=== PATIENT | male | born 1985 | race Caucasian/White ===

== ENCOUNTER 2019-04-23 01:48 | Emergency (ER) | payer OTHER ==
[~2019-04-23] VITALS: Ht 170.2 cm; Wt 79.4 kg
[2019-04-23] MEDS ORDERED: fentaNYL PF VIAL 100 MCG/2 ML VIAL IV ONE (02:15)
[2019-04-23] MEDS ORDERED: IV NORMAL SALINE 1000ML BAG 1,000 ML IV ONE (02:15)
[2019-04-23 02:28] LABS: BASO # 0.1 x10^3/uL (0.0-0.2); BASO % 0 % (0-3); EOS # 0.1 x10^3/uL (0.0-0.7); EOS % 1 % (0-3); HEMATOCRIT 41.3 % (39.0-53.0); HEMOGLOBIN 14.1 g/dL (13.0-17.5); LYMPH # 2.3 x10^3/uL (1.0-4.8); LYMPH % 14 % (24-48); MEAN CORPUSCULAR HEMOGLOBIN 29 pg (25-35); MEAN CORPUSCULAR HGB CONC 34 g/dL (31-37); MEAN CORPUSCULAR VOLUME 86 fL (79-100); MONO # 0.9 x10^3/uL (0.0-1.1); MONO % 6 % (0-9); NEUT # 12.8 x10^3/uL (1.8-7.7); NEUT % 79 % (31-73); PLATELET COUNT 319 x10^3/uL (140-400); RED BLOOD COUNT 4.83 x10^6/uL (4.30-5.70); RED CELL DISTRIBUTION WIDTH 13.1 % (11.5-14.5); WHITE BLOOD COUNT 16.2 x10^3/uL (4.0-11.0)
[2019-04-23 02:34] LABS: CALCIUM 9.4 mg/dL (8.5-10.1); CREATININE 0.9 mg/dL (0.7-1.3); GFR 97.8; POTASSIUM 3.9 mmol/L (3.5-5.1)
[2019-04-23 02:35] LABS: CREATININE ISTAT 0.9 mg/dL (0.5-1.4); HEMOGLOBIN ISTAT 13.9 g/dL (14-18); ION CA ISTAT 1.21 mmol/L (1.13-1.32); POTASSIUM ISTAT 3.8 mmol/L (3.5-5.0)
[2019-04-23 02:38] LABS: PROTHROMBIN TIME PATIENT 13.5 SEC (11.7-14.0)
[2019-04-23 02:40] LABS: ALBUMIN 4.4 g/dL (3.4-5.0); ALBUMIN/GLOBULIN RATIO 1.3 (1.0-1.7); TOTAL BILIRUBIN 0.5 mg/dL (0.2-1.0); TOTAL PROTEIN 7.8 g/dL (6.4-8.2)
[2019-04-23] MEDS ORDERED: CONTRAST GIVEN. MC PRN (03:15)
[2019-04-23] MEDS ORDERED: MORPHINE SULFATE 4 MG/ML VIAL. IV ONE (03:15)
[2019-04-23] MEDS ORDERED: IOHEXOL 300 MG/ML 100ML VIAL. IV ONE (03:15)
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
[2019-04-23 03:37] LABS: % BANDS 1 % (0-9); % LYMPHS 5 % (24-48); % MONOS 9 % (0-10); % SEGS 85 % (35-66); PLT ESTIMATE ADEQUATE (ADEQUATE)
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
[2019-04-23 04:04] VITALS: BP 112/66
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
== END 2019-04-23 04:15 | disposition home or self-care (01) ==
LOC: EEVIPCON 01:48 → ER 01:48
DX: S00.83XA Contusion of other part of head, initial encounter (principal); S60.221A Contusion of right hand, initial encounter; R07.89 Other chest pain; R10.32 Left lower quadrant pain; Y04.8XXA Assault by other bodily force, initial encounter; Y93.89 Activity, other specified; Y92.89 Other specified places as the place of occurrence of the external cause; Y99.8 Other external cause status
CPT/HCPCS: 36415; 70450; 70486; 71045; 72125; 73130; 74177; 80047; 80053; 85007; 85025; 85610; 96374; 96375; 99285; J2270; J3010; J7030